=== PATIENT | male | born 1960 | race Caucasian/White ===

== ENCOUNTER 2017-09-14 00:42 | Outpatient (CLI) | payer OTHER, SELFPAY ==
[2017-09-14 09:04] LABS: HCT 43.5 % (40.0-50.0); HGB 15.1 g/dL (13.5-17.5); Mean Corp. HGB Concentration 34.7 g/dL (32.0-36.0); Mean Corpuscular Hemoglobin 29.3 pg (27.0-33.0); Mean Corpuscular Volume 84.5 fL (80-95); Platelet Count 210 x1000/uL (130-400); RBC 5.15 m/cumm (4.50-6.00); RBC Distribution Width 12.8 % (11.8-14.1); White Blood Cell Count 5.58 k/cumm (4.4-10.8)
[2017-09-14 09:58] LABS: ALT 37 U/L (12-78); AST 20 U/L (15-37); Albumin 4.1 g/dL (3.4-5.0); Alkaline Phosphatase 53 U/L (46-116); Anion Gap 6.4 mmol/L (3-11); BUN 15 mg/dL (7-18); Bilirubin, Total 1.2 mg/dL (0.2-1.0); CO2 27.6 mmol/L (21.0-32.0); CREATININE 1.06 mg/dL (0.70-1.30); Calcium 8.7 mg/dL (8.5-10.1); Chloride 105 mmol/L (98-107); Cholesterol 186 mg/dL (50-200); Glucose 99 mg/dL (70-100); HDL Cholesterol 50 mg/dL (40-60); LDL CHOLESTEROL 125 mg/dL (<100); Potassium 4.5 mmol/L (3.5-5.1); Sodium 139 mmol/L (136-145); Total Protein 6.9 g/dL (6.4-8.2); Triglyceride 69 mg/dL (30-150)
== END 2017-09-14 00:43 ==
PROVIDERS: PCP Family Medicine; Visit Provider Family Medicine
DX: R03.0 Elevated blood-pressure reading, without diagnosis of hypertension (principal); Z86.79 Personal history of other diseases of the circulatory system
CPT/HCPCS: 36415; 80053; 80061; 83721; 85027

== ENCOUNTER 2018-10-09 02:39 | Outpatient (CLI) | payer OTHER, SELFPAY ==
[2018-10-09 09:16] LABS: Glucose 104 mg/dL (70-100)
== END 2018-10-09 02:59 ==
PROVIDERS: PCP Family Medicine; Visit Provider Family Medicine
DX: Z00.00 Encounter for general adult medical examination without abnormal findings (principal); Z12.5 Encounter for screening for malignant neoplasm of prostate
CPT/HCPCS: 36415; 82947; 84153

== ENCOUNTER 2019-08-12 15:42 | Outpatient (REF) | payer OTHER, SELFPAY ==
--- NOTE | 2019-08-12 14:00 | SKI_PTH ---
PATIENT: Aden Rao LOC: [facility] U#:[id number] AGE/SX: 59/M ROOM: RE08/12/[address]: Judy Peterson MD : 1960 BED: DIS: 08/12/2019 SPEC #: [id number] RECD: 08/12/19 17:02 STATUS: ANANYA GALLAGHER #: [id number] DYLAN: 08/12/19 14:[address]: Judy Peterson DEPT: Surgical Specimen RECD BY: Saira Marcial ENTERED: 08/12/19 17:03 SP TYPE: DEWEY GARCIA DR: Myron Lam MD Tissues: 1 - SKIN BIOPSY(SHAVE/PUNCH) 2 - SKIN BIOPSY(SHAVE/PUNCH) Procedures: SKIN LEVEL 4 Comments: [id number]
== END 2019-08-12 16:02 ==
LOC: LBN 15:42
PROVIDERS: PCP Family Medicine; Visit Provider Surgery
DX: C44.519 Basal cell carcinoma of skin of other part of trunk (principal); L90.5 Scar conditions and fibrosis of skin; L85.8 Other specified epidermal thickening
CPT/HCPCS: 88305

== ENCOUNTER 2019-10-17 02:34 | Outpatient (CLI) | payer OTHER, SELFPAY ==
[2019-10-17 09:05] LABS: HCT 45.8 % (40.0-50.0); HGB 15.4 g/dL (13.5-17.5); MCH 29.2 pg (27.0-33.0); MCHC 33.6 % (32.0-36.0); MCV 86.7 fL (80-95); MPV 9.9 fL (8.0-11.0); Platelet Count 206 10^3/uL (130-400); RBC 5.28 10^6/uL (4.36-5.78); RDW 12.1 % (11.8-14.1); RDW-SD 38.4 fL; WBC 5.92 10^3/uL (4.4-10.8)
[2019-10-17 10:12] LABS: ALT 39 U/L (16-63); AST 17 U/L (15-37); Albumin 4.2 g/dL (3.4-5.0); Alkaline Phosphatase 52 U/L (46-116); Anion Gap 4.2 mmol/L (3-11); BUN 20 mg/dL (7-18); Bilirubin, Total 1.2 mg/dL (0.2-1.0); CO2 29.8 mmol/L (21.0-32.0); CREATININE 0.97 mg/dL (0.70-1.30); Calcium 8.8 mg/dL (8.5-10.1); Calculated LDL 142 mg/dL (<100); Chloride 105 mmol/L (98-107); Cholesterol 202 mg/dL (<200); Glucose 105 mg/dL (74-106); HDL Cholesterol 48 mg/dL (40-60); Potassium 4.5 mmol/L (3.5-5.1); Sodium 139 mmol/L (136-145); Triglyceride 60 mg/dL (<150)
== END 2019-10-17 02:54 ==
PROVIDERS: PCP Family Medicine; Visit Provider Family Medicine
DX: Z00.00 Encounter for general adult medical examination without abnormal findings (principal); R03.0 Elevated blood-pressure reading, without diagnosis of hypertension; Z13.220 Encounter for screening for lipoid disorders; Z13.29 Encounter for screening for other suspected endocrine disorder
CPT/HCPCS: 36415; 80053; 80061; 85027; 84443

== ENCOUNTER 2019-12-02 09:08 | Outpatient (CLI) | payer OTHER, SELFPAY ==
--- NOTE | 2019-12-02 08:15 | DI.RAD_ITS ---
EXAM: XR SHOULDER RT COMPLETE 2+V CLINICAL HISTORY: RIGHT SHOULDER PAIN. TECHNIQUE: 2D digital imaging was performed. COMPARISON: No exams were available for comparison FINDINGS: BONES: No acute fracture is present. No bony destructive lesion is seen. JOINTS: No dislocation present. Mild degenerative changes are seen at the AC joint and glenohumeral j oint.. SOFT TISSUE: Normal. IMPRESSION: Mild degenerative changes. DATA REPOSITORY: RADIATION DOSE DELIVERED:
== END 2019-12-02 09:28 ==
PROVIDERS: PCP Family Medicine; Referring Provider Family Medicine; Visit Provider Student in an Organized Health Care Education/Training Program
DX: M19.011 Primary osteoarthritis, right shoulder (principal); M25.511 Pain in right shoulder
CPT/HCPCS: 73030

== ENCOUNTER 2019-12-16 06:36 | Emergency (ER) | payer OTHER, SELFPAY ==
[2019-12-16 06:41] VITALS: BP 144/93; PULSE 61; RESP 20; TEMP 36.5; O2SAT 97
--- NOTE | 2019-12-16 06:45 | RT.EKG_ITS ---
APPROVED REPORT Exam: Resting ECG Patient Location: E HR:67 bpm ECG Measurements Heart Rate 67 AXIS VT 211 P 20 QRSd 96 QRS -15 QT 397 T 19 QTc 419 Conclusion Sinus rhythm...normal P axis, V-rate 60- 99 Prolonged VT interval...VT >210, V-rate 50- 90
--- NOTE | 2019-12-16 07:13 | ED.GENADUL_ITS ---
Discharge Plan Disposition Patient Disposition: HOME Condition: Good Discharge Details Clinical Impression: Kidney stone, Incidental lung nodule Primary Care Provider: Myron Lam ED Provider: Kingsley Garza Home Meds and New Rx's Prescriptions: New tamsulosin [Flomax] 0.4 mg capsule 0.4 mg PO DAILY Qty: 7 RF: 0 Continued valsartan 80 mg tablet 80 mg PO DAILY Qty: 90 RF: 3 Discharge Instructions Instructions: Kidney Stones (ED) Additional Instructions: Your CAT scan shows evidence of a kidney stone. Please take 1000mg of Tylenol and 800mg of Ibuprofen as needed for the pain. Please take the flomax to help expulse your stone. Please use the strainer to collect the stone, it can then be analyzed by your family doctor. If you notice any worsening of your symptoms, or any new symptoms such as vomiting, diarrhea, fever, chills, shortness of breath, chest pain, numbness, weakness, or fainting , please return immediately to the emergency department for reevaluation. Please follow up with your primary care provider as soon as possible for reassessment and reevaluation. Please get repeat blood work within the next week to reassess your kidney function. As always, it was a pleasure participating in your medical care today. Your CAT scan also does show some incidental pulmonary nodules. Although these are not of emergent concern patient do need to be followed and rechecked in the next 6 months. Please discuss this with your primary care provider for repeat imaging and continued monitoring. Referrals: Myron Lam [Primary Care Provider] - Medical Decision Making 59-year-old male with no significant past medical history except for hypertension, presents today for evaluation of right-sided abdominal pain. Patient states that 3 days ago he had notable right sided abdominal pain, with an associated episode of vomiting. It occurred after eating. Symptoms better with time, then yesterday when he ate lunch which was greasy shepherds pie it notably returned. Since then and currently the patient's pain has resolved and he is now pain-free. He denies any chest pain chest tightness or shortness of breath. He denies any history of cardiac disease. He denies any diarrhea. He denies any urinary complaints. No other complaints at this time. No other modifying factors. Currently he is pain-free. Physical exam is notably unremarkable, no right-sided tenderness, no pain or McBurney's point, negative Mahmood sign, no flank or CVA tenderness. Normal genital exam, no signs of testicular torsion. Signs and symptoms at this time are concerning for potential gallstone pathology, appendicitis notably less likely with the resolution of his symptoms. Kidney stone that is passed is also in the differential. Cardiac etiology unlikely but I do feel does warrant further investigation. Will evaluate for these acute pathologies, monitor closely and reassess 7:[address] scan results demonstrate evidence of a 5 mm distal right ureteral calculus, no evidence of infectious etiology in the urine, or blood work. Laboratory work-up is reassuring. Creatinine is slightly worse than normal at 1.6, with and shows no signs of renal failure. The stone being notably distal we will start him on Flomax. Will recommend close follow-up with PCP for lab recheck, and reassessment. With the patient's pain completely resolved, no evidence of ximena renal failure, infectious etiology or uncontrolled pain the patient will be discharged home. Discussed red flags for which to return. Additionally there was evidence of incidental pulmonary nodules noted on CT scan. Will recommend PCP follow-up and reimaging in the next 6 months. I have extensively reviewed the treatment plan and discharge instructions with the patient. I have addressed all patient concerns at this time. The patient was made aware of what symptoms to monitor for that would warrant a return to the emergency department. Discussed the plan with the patient, they demonstrate verbal understanding and agreement with our assessment and plan at this time. EKG 7: 00 Rate 67, NH 211, QTc 419, QRS 96, no significant ST elevations or depressions, no evidence of STEMI, FINDINGS: Lungs: There are multiple small noncalcified pulmonary nodules in the lung bases measuring up to 3 mm in diameter. Liver: Normal. No mass. Gallbladder and bile ducts: Normal. No calcified stones. No ductal dilation. Pancreas: Normal. No ductal dilation. Spleen: Normal. No splenomegaly. Adrenal glands: Normal. No mass. Kidneys and ureters: There is a 5 mm calculus in distal right ureter at the level of the mid sacrum. There is mild right hydronephrosis and hydroureter. No calcifications are seen within the kidneys. There is no hydronephrosis on the left side. Stomach and bowel: Scattered diverticuli present on the colon but there is no evidence of acute diverticulitis. Appendix: No evidence of appendicitis. Intraperitoneal space: Unremarkable. No free air. No significant fluid collection Vasculature: Unremarkable. No abdominal aortic aneurysm. Lymph nodes: Unremarkable. No enlarged lymph nodes. Urinary bladder: Unremarkable as visualized. Reproductive: Multiple calcifications are present in an enlarged prostate. There is mural thickening of the urinary bladder which could be due to partial filling but also possibly chronic outlet obstructed from prostatic hypertrophy. Bones/joints: DJD is present in the spine with sclerosis and osteophyte formation. Soft tissues: Unremarkable. Other findings: . IMPRESSION: 1. There is a 5 mm distal right ureteral calculus with mild right hydronephrosis. 2. Multiple small noncalcified pulmonary nodules in the lung bases measuring up to 3 mm. 3. For patients at low risk (minimal or absent history of smoking and of other known risk factors), no routine follow-up is indicated. For patients at high risk (history of smoking or of other known risk factors), consider optional CT Chest at 12 months. (Reference: Lenny) REFERENCES: Lenny Warner, et al. Guidelines for Management of Incidental Pulmonary Nodules Detected on CT Images: From the Fleischner Society 2017. Radiology. 2017;284(1):228-243. Thank you for allowing us to participate in the care of your patient. Dictated and Authenticated by: Saw Ochoa MD 12/16/2019 7:35 AM Eastern Time ([place] & [place]) HPI General Date/Time Provider Initiated Documentation: 12/16/19 06:54 . HPI Narrative: 59-year-old male with no significant past medical history except for hypertension, presents today for evaluation of right-sided abdominal pain. Patient states that 3 days ago he had notable right sided abdominal pain, with an associated episode of vomiting. It occurred after eating. Symptoms better with time, then yesterday when he ate lunch which was greasy shepherds pie it notably returned. Since then and currently the patient's pain has resolved and he is now pain-free. He denies any chest pain chest tightness or shortness of breath. He denies any history of cardiac disease. He denies any diarrhea. He denies any urinary complaints. No other complaints at this time. No other modifying factors. Currently he is pain-free. Related Data Home Medications Medication Instructions Recorded Confirmed valsartan 80 mg tablet 80 mg PO DAILY #90 tab 10/27/19 12/02/19 tamsulosin [Flomax] 0.4 mg PO DAILY #7 cap 12/16/19 Previous Rx's Medication Instructions Recorded valsartan 80 mg tablet 80 mg PO DAILY #90 tab 10/27/19 tamsulosin [Flomax] 0.4 mg PO DAILY #7 cap 12/16/19 Allergies Allergy/AdvReac Type Severity Reaction Status Date / Time oxycodone HCl [From Percocet] Allergy Unknown Verified 12/02/19 08:15 General Stated Complaint: Abd Prob ARVIN: 3 Review of Systems All systems reviewed & are unremarkable except as noted in HPI and below PFSH Medical History Anxiety (09/11/11) Dermatophytosis of nail (02/10/14) Elevated BP without diagnosis of hypertension (09/21/17) Malignant melanoma of torso excluding breast (08/10/16) back Partial tear of rotator cuff (09/21/11) Surgical History Excision, Lesion (08/09/16) back, melanoma LASIK Status post labral repair of shoulder x2 (both shoulders) Vasectomy Family History Mother , 82 Cancer of kidney Colon cancer Father , 87 Essential hypertension Stroke Bladder cancer Brother Brain cancer Brother No problems noted. Son No problems noted. Daughter No problems noted. Other Hyperlipidemia Social History Smoking/Tobacco Use Status: Never Smoking risk assessment performed?: Yes Alcohol Intake: current Alcohol Intake frequency: a few times a week Alcohol type: beer Drug use: Never Substance use type: former substance user and marijuana Caregiver/Support person: No Household members: spouse and children Housing: house Communication Needs: None Do you need help understanding health information?: Rarely Pets and animals: Yes Pets and animals: cat(s) and dog(s) Sexually active: Yes Do you think of yourself as: straight/heterosexual Current gender identity: male What is your relationship status?: How often do you talk on the phone with friends or family?: once per week How often do you get together with friends or relatives?: once per week How often do you attend judaism or sabianist services?: 4 or more times per year Do you belong to any clubs or organized social groups?: yes Panel score (0-1 are the most socially isolated patients): 3 What type of physical activity do you participate in: walking Duration: 15-30 minutes/day Frequency: 3-4 times per week Tanna/Synagogue: [employer] Special tanna needs: No Seatbelt use: always Helmet use: Yes Helmet use: always Drive intox or ride w/intox 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 3.ENT: Atraumatic external nose and ears. Moist MM. Neck: Symmetric, trachea midline, No thyromegaly. 4.CVS: +S1/S2, No murmurs or gallops. Peripheral pulses 2+ and equal in all ex tremities. Brisk capillary refill in all extremities. 5.RESP: Unlabored respiratory effort. Clear to auscultation bilaterally. No wheezes rales or rhonchi 6.GI: Soft, Nontender/Nondistended, No hepatosplenomegaly. No guarding or rebound. No pain or McBurney's point, negative Mahmood sign, genital exam demonstrates bilaterally descended testicles, normal cremasteric reflex, no testicular penile tenderness. 7.MSK: Normocephalic/Atraumatic, Extremities w/o deformity or ttp No cyanosis or clubbing, Normal movement of all extremities 8.Skin: Warm, Dry. No rashes or lesions. 9.Neuro: street photographer II-XII grossly intact. Sensation grossly intact, no focal neurologic deficits. 10.Psych: (AAO) x3. Appropriate mood and affect Course Vital Signs Vital signs: Vital Signs Temperature 36.5 C 12/16/19 06:41 Pulse 61 12/16/19 06:41 Respiratory Rate 20 12/16/19 06:41 Blood Pressure 144/93 H 12/16/19 06:41 Pulse Oximetry 97 12/16/19 06:41 Temperature 36.5 C 12/16/19 06:41 Temperature Source Tympanic 12/16/19 06:41 Pulse 92 H 12/16/19 07:11 Respiratory Rate 18 12/16/19 07:11 Respiratory Effort 12/16/19 06:48 Blood Pressure 149/97 H 12/16/19 07:11 Pulse Oximetry 94 12/16/19 07:11 Oxygen Delivery Method Room Air 12/16/19 07:11 Oxygen Flow Rate 0 12/16/19 07:11 Pain Level 0 12/16/19 07:11
[2019-12-16 07:15] LABS: Abs Immature Grans 0.04 10^3/uL (0.0-0.06); Absolute Basophil Count 0.07 10^3/uL (0.0-0.2); Absolute Lymphocyte Count 2.23 10^3/uL (1.2-3.4); Absolute Monocyte Count 1.18 10^3/uL (0.1-0.8); Basophils % 0.6; Eosinophils % 0.9; HCT 42.8 % (40.0-50.0); HGB 14.6 g/dL (13.5-17.5); Immature Grans % 0.3; Lymphocytes % 19.4; MCH 29.7 pg (27.0-33.0); MCHC 34.1 % (32.0-36.0); MCV 87.2 fL (80-95); MPV 9.8 fL (8.0-11.0); Monocytes % 10.3; Neutrophils % 68.5; Nucleated RBC 0 %; Platelet Count 203 10^3/uL (130-400); RBC 4.91 10^6/uL (4.36-5.78); RDW 12.4 % (11.8-14.1); RDW-SD 39.6 fL; WBC 11.47 10^3/uL (4.4-10.8)
[2019-12-16 07:16] LABS: Bilirubin Negative (Negative); Blood Moderate (Negative); Clarity Sl Cloudy (Clear); Glucose Negative (Negative); Ketones Negative (Negative); Leukocyte Esterase Negative (Negative); Nitrite Negative (Negative); pH 7.5 (5-8)
[2019-12-16 07:18] LABS: Absolute Neutrophil Count 7.86 10^3/uL (1.2-6.7)
--- NOTE | 2019-12-16 07:18 | DI.CT_ITS ---
EXAM: CT ABDOMEN PELVIS WO CLINICAL HISTORY: right sided abdominal pain. TECHNIQUE: Imaging Protocol: Axial computed tomography images with coronal and sagittal reformatted images were created and reviewed. COMPARISON: No exams were available for comparison FINDINGS: ABDOMEN: Lung Bases: There is a calcified granuloma in the left lingula. There is a 3 mm nodule associated wi th the lateral aspect of the right major fissure which may represent an intraparenchymal lymph node. There are a few tiny noncalcified pulmonary nodules in the lung bases. The largest measuring 0.3 cm . Liver: Diffuse fatty infiltration. No measurable mass. Gallbladder and biliary tract: No radiodense calculus or biliary ductal dilation. Pancreas: Normal density, no abnormal calcifications or inflammatory process. Spleen: Normal. Kidneys: Normal size, contour and axis.There is a 5 mm calculus in the distal right ureter at the lev el of the mid sacrum. There is mild right hydronephrosis. No left nephrolithiasis or hydronephrosis . No masses seen. Adrenal glands: No mass is seen. Lymph nodes: Within normal limits. Abdominal Aorta: Abdominal portion non-dilated. Atherosclerosis. PELVIS: Bladder:Incompletely distended. No gross abnormality. Bowel: No obstruction or bowel wall thickening. Appendix is unremarkable. Mild colonic diverticulosi s but no evidence of acute diverticulitis. Peritoneal cavity: No ascites, collection or mesenteric inflammatory response Reproductive organs: Enlarged prostate gland. Bones: Degenerative changes. Soft Tissues: Within normal limits. IMPRESSION: 1. 5 mm distal right ureteral calculus causing mild right hydronephrosis. 2. Several small noncalcified pulmonary nodules in the lung bases measuring up to 3 mm. For high ris k patient is (history of smoking or other known risk fractures), consider CT scan of the chest in 12 months. RADIATION DOSE DELIVERED: 1,178.5mGy.cm Total DLP DATA REPOSITORY: All CT scans at this facility are submitted to the National Radiology Data Registry (NRDR) Dose Index Registry (DIR) with the [employer] (ACR). RADIATION OPTIMIZATION: All CT scans at this facility use at least one of these dose optimization te chniques: automated exposure control; mA and/or kV adjustment per patient size (includes targeted exa ms where dose is matched to clinical indication); or iterative reconstruction.
[2019-12-16 07:19] VITALS: RESP 18
[2019-12-16 07:27] VITALS: BP 126/83; PULSE 60; RESP 18; O2SAT 97
[2019-12-16 07:27] LABS: Bacteria Rare HPF (Negative); Epithelial Cells Rare HPF (Negative); WBC 0-2 HPF (0-5)
[2019-12-16 07:28] LABS: C & S Indicated? No; Casts Negative LPF (Negative); Crystals Moderate Amorphous HPF (Negative); Mucus Trace (Negative)
--- NOTE | 2019-12-16 07:35 | DI.VRAD_ITS ---
PROCEDURE INFORMATION: Exam: CT Abdomen And Pelvis Without Contrast Exam date and time: 12/16/2019 7:14 AM Age: 59 years old Clinical indication: Localized; Patient HX: Right sided abdominal pain. TECHNIQUE: Imaging protocol: Computed tomography of the abdomen and pelvis without contrast. Radiation optimization: All CT scans at this facility use at least one of these dose optimization techniques: automated exposure control; mA and/or kV adjustment per patient size (includes targeted exams where dose is matched to clinical indication); or iterative reconstruction. COMPARISON: No relevant prior studies available. FINDINGS: Lungs: There are multiple small noncalcified pulmonary nodules in the lung bases measuring up to 3 mm in diameter. Liver: Normal. No mass. Gallbladder and bile ducts: Normal. No calcified stones. No ductal dilation. Pancreas: Normal. No ductal dilation. Spleen: Normal. No splenomegaly. Adrenal glands: Normal. No mass. Kidneys and ureters: There is a 5 mm calculus in distal right ureter at the level of the mid sacrum. There is mild right hydronephrosis and hydroureter. No calcifications are seen within the kidneys. There is no hydronephrosis on the left side. Stomach and bowel: Scattered diverticuli present on the colon but there is no evidence of acute diverticulitis. Appendix: No evidence of appendicitis. Intraperitoneal space: Unremarkable. No free air. No significant fluid collection. Vasculature: Unremarkable. No abdominal aortic aneurysm. Lymph nodes: Unremarkable. No enlarged lymph nodes. Urinary bladder: Unremarkable as visualized. Reproductive: Multiple calcifications are present in an enlarged prostate. There is mural thickening of the urinary bladder which could be due to partial filling but also possibly chronic outlet obstructed from prostatic hypertrophy. Bones/joints: DJD is present in the spine with sclerosis and osteophyte formation. Soft tissues: Unremarkable. Other findings: . IMPRESSION: 1. There is a 5 mm distal right ureteral calculus with mild right hydronephrosis. 2. Multiple small noncalcified pulmonary nodules in the lung bases measuring up to 3 mm. 3. For patients at low risk (minimal or absent history of smoking and of other known risk factors), no routine follow-up is indicated. For patients at high risk (history of smoking or of other known risk factors), consider optional CT Chest at 12 months. (Reference: Lenny) REFERENCES: Lenny Warner et al. Guidelines for Management of Incidental Pulmonary Nodules Detected on CT Images: From the Fleischner Society 2017. Radiology. 2017;284(1):228-243. Dictated and Authenticated by: Saw Ochoa MD. Ordering:WILBERTO Wynn MD
[2019-12-16 07:36] LABS: ALT 36 U/L (16-63); AST 22 U/L (15-37); Albumin 3.9 g/dL (3.4-5.0); Alkaline Phosphatase 56 U/L (46-116); Anion Gap 2.3 mmol/L (3-11); BUN 20 mg/dL (7-18); Bilirubin, Total 2.6 mg/dL (0.2-1.0); CO2 30.7 mmol/L (21.0-32.0); Calcium 9.1 mg/dL (8.5-10.1); Chloride 103 mmol/L (98-107); Estimated GFR 44.62 (mL/min/1.73m2); Glucose 108 mg/dL (74-106); Lipase 170 U/L (73-393); Potassium 4.2 mmol/L (3.5-5.1); Sodium 136 mmol/L (136-145); Total Protein 7.1 g/dL (6.4-8.2)
[2019-12-16 07:36] LABS: Troponin I < 0.05 ng/mL (<0.06)
[2019-12-16 07:51] VITALS: BP 138/84; PULSE 60; RESP 13; O2SAT 96
== END 2019-12-16 08:05 | disposition home or self-care (01) ==
PROVIDERS: Emergency Provider Student in an Organized Health Care Education/Training Program; PCP Family Medicine
DX: N13.2 Hydronephrosis with renal and ureteral calculous obstruction (principal); N13.4 Hydroureter; R91.1 Solitary pulmonary nodule; I10 Essential (primary) hypertension
CPT/HCPCS: 36415; 80053; 83690; 93005; 99284; 74176; 81003; 81015; 84484; 85025; 93010; 99285

== ENCOUNTER 2019-12-22 15:56 | Outpatient (REF) | payer OTHER, SELFPAY ==
[2019-12-22 21:00] LABS: ALT 43 U/L (16-63); Anion Gap 8.2 mmol/L (3-11); BUN 19 mg/dL (7-18); CO2 27.8 mmol/L (21.0-32.0); CREATININE 1.08 mg/dL (0.70-1.30); Calcium 9.2 mg/dL (8.5-10.1); Calculated LDL 102 mg/dL (<100); Chloride 103 mmol/L (98-107); Cholesterol 192 mg/dL (<200); Glucose 106 mg/dL (74-106); HDL Cholesterol 40 mg/dL (40-60); Potassium 4.1 mmol/L (3.5-5.1); Sodium 139 mmol/L (136-145); Triglyceride 253 mg/dL (<150)
== END 2019-12-22 16:16 ==
LOC: NCHCN 15:56
PROVIDERS: PCP Family Medicine; Visit Provider Family Medicine
DX: N28.9 Disorder of kidney and ureter, unspecified (principal); I10 Essential (primary) hypertension
CPT/HCPCS: 80048; 80061; 84460

== ENCOUNTER 2020-02-26 01:38 | Outpatient (CLI) | payer OTHER, SELFPAY ==
--- NOTE | 2020-02-26 06:30 | DI.US_ITS ---
EXAM: US RENAL CLINICAL HISTORY: kidney stone 0.5mm right ureter on CT, f/u,N20.0 TECHNIQUE: Ultrasound performed using standard protocol. COMPARISON: CT CT ABDOMEN PELVIS WO from 12/16/2019 FINDINGS: Renal ultrasound was performed according to the usual protocol. The kidneys are normal in size and s hape. No hydronephrosis on either side. No renal mass identified by ultrasound criteria. No intrar enal calculi seen. There are bilateral ureteral jets visualized. There is an apparent intra vesicle calculus measuring about 10 millimeters in diameter, this was not seen on CT and there is some question this could lie i n the bladder wall or prostate. Question of echogenic focus seen in region of the distal ureter, also indeterminate. IMPRESSION: No evidence of acute urinary tract obstruction. Possible bladder stone. DATA REPOSITORY:
== END 2020-02-26 01:58 ==
PROVIDERS: PCP Family Medicine; Visit Provider Family Medicine
DX: N20.0 Calculus of kidney (principal)
CPT/HCPCS: 76770

== ENCOUNTER 2020-05-05 04:13 | Outpatient (CLI) | payer OTHER, SELFPAY ==
[2020-05-05 08:20] LABS: Bilirubin Negative (Negative); Blood Negative (Negative); Clarity Clear (Clear); Glucose Negative (Negative); Ketones Negative (Negative); Leukocyte Esterase Negative (Negative); Nitrite Negative (Negative); Urobilinogen 0.2 EU/dL (Up TO 0.2)
== END 2020-05-05 04:14 | disposition home or self-care (01) ==
LOC: LBO 04:13
PROVIDERS: PCP Family Medicine; Visit Provider Family Medicine
DX: N20.0 Calculus of kidney (principal)
CPT/HCPCS: 81003

== ENCOUNTER 2020-07-07 02:32 | Outpatient (CLI) | payer OTHER, SELFPAY ==
--- NOTE | 2020-07-07 07:45 | DI.CT_ITS ---
Exam(s) CT CHEST W EXAM: CT CHEST W CLINICAL HISTORY: Lung nodule found on Abd CT,r91.1. TECHNIQUE: Multi planar reconstructions were performed. CONTRAST MATERIAL: Omnipaque 350; 75 cc COMPARISON: CT CT ABDOMEN PELVIS WO from 12/16/2019 FINDINGS: CHEST: LUNGS: In the right lung there is a 2-3 millimeter fissure related nodule in the anterior basal segme nt of the right lower lobe. This corresponds to what was seen on recent upper images of an abdominal CT scan. There is also a subpleural 3 millimeter ipsilateral nodule in the lateral basal segment of the right lower lobe, also unchanged. There is a tiny 2 millimeter noncalcified subpleural nodule i n the posterior basal segment of the right lower lobe. There is a 2-3 millimeter nodule in the right upper lobe. No pleural effusion. There is some mild atelectasis in the inferior lingular segment. There is 8th 2-3 millimeters subple ural nodule at the junction of the posterior and lateral basal segments as well as an additional brad lar size nodule adjacent to it, both unchanged from the prior study of December 2019. No pleural eff usion. There are no confluent infiltrates in either lung. No findings in trachea and mainstem bronc hi. No bronchiectasis. MEDIASTINUM: There is no hilar nor mediastinal adenopathy. Small nodule measuring 3 millimeters is in cidentally noted in the right thyroid lobe. The entire thyroid is not included in the field of view. CARDIAC: Heart size is normal. There is no pericardial effusion.Caliber of the thoracic aorta is wit hin normal limits. VISUALIZED UPPER ABDOMEN:There are no significant adrenal masses. OSSEOUS: No significant osseous lesions. IMPRESSION: 1. Bilateral small nodules in both lungs, all measuring at or less than 3 millimeters. Those include d in the field of view of the previous December 2019 abdominal scan upper images are unchanged. Ther e is no intrathoracic adenopathy and there are no pleural effusions. 2. Appropriate follow-up would be repeat CT scan in 6 months to ensure stability of these small nodul es.. This can be performed without IV contrast. RADIATION DOSE DELIVERED: 612.84mGy.cm Total DLP DATA REPOSITORY: All CT scans at this facility are submitted to the National Radiology Data Registry (NRDR) Dose Index Registry (DIR) with the [employer] (ACR). RADIATION OPTIMIZATION: All CT scans at this facility use at least one of these dose optimization te chniques: automated exposure control; mA and/or kV adjustment per patient size (includes targeted exa ms where dose is matched to clinical indication); or iterative reconstruction.
[2020-07-07 08:58] LABS: ALT 33 U/L (16-63); AST 17 U/L (15-37); Albumin 4.2 g/dL (3.4-5.0); Alkaline Phosphatase 53 U/L (46-116); Anion Gap 7.4 mmol/L (3-11); BUN 20 mg/dL (7-18); Bilirubin, Total 1.9 mg/dL (0.2-1.0); CO2 29.6 mmol/L (21.0-32.0); CREATININE 1.1 mg/dL (0.70-1.30); Chloride 106 mmol/L (98-107); Glucose 94 mg/dL (74-106); Potassium 4.5 mmol/L (3.5-5.1); Sodium 143 mmol/L (136-145); Total Protein 7.2 g/dL (6.4-8.2)
[2020-07-07] MEDS: Normal Saline - Diluent 50 ML VIAL IV (09:18)
== END 2020-07-07 02:52 ==
PROVIDERS: PCP Nurse Practitioner Family; Visit Provider Nurse Practitioner Family
DX: R91.1 Solitary pulmonary nodule (principal); R91.8 Other nonspecific abnormal finding of lung field; R94.4 Abnormal results of kidney function studies
CPT/HCPCS: 80053; 71260

== ENCOUNTER 2020-07-07 04:27 | Outpatient (CLI) | payer OTHER, SELFPAY ==
[2020-07-07 08:59] LABS: Hemoglobin A1C 5.2 % (<5.7)
[2020-07-07 09:13] LABS: Calculated LDL 116 mg/dL (<100); Cholesterol 182 mg/dL (<200); HDL Cholesterol 52 mg/dL (40-60); Triglyceride 70 mg/dL (<150)
[2020-07-07 17:07] LABS: PSA, Screening 1.6 ng/mL (0.0-3.5)
== END 2020-07-07 04:28 | disposition home or self-care (01) ==
LOC: LBO 04:27
PROVIDERS: PCP Nurse Practitioner Family; Visit Provider Nurse Practitioner Family
DX: Z13.1 Encounter for screening for diabetes mellitus (principal); Z13.220 Encounter for screening for lipoid disorders; Z12.5 Encounter for screening for malignant neoplasm of prostate
CPT/HCPCS: 36415; 80061; 84153; 83036

== ENCOUNTER 2021-05-11 02:54 | Outpatient (CLI) | payer OTHER, SELFPAY ==
[2021-05-11 10:10] LABS: Source Nasal/Nares
[2021-05-11 12:56] LABS: COVID-19 PCR Negative (Negative)
== END 2021-05-11 02:55 | disposition home or self-care (01) ==
LOC: LBO 02:54
PROVIDERS: PCP Nurse Practitioner Family; Visit Provider Surgery
DX: Z20.822 Contact with and (suspected) exposure to COVID-19 (principal)
CPT/HCPCS: 87635

== ENCOUNTER 2021-05-13 07:43 | Day surgery (SDC) | payer OTHER, SELFPAY ==
--- NOTE | 2021-05-12 14:47 | W.COLOREPORT ---
Colonoscopy Report Date of procedure: 05/13/21 Pre-op diagnosis general: +family hx CRC/hx of polyps Post-op diagnosis procedure note: other (diverticula ) Surgeon: Janett Greco Anesthesia Type: General:No Airway Estimated blood loss (mL): 0 Pathology: none sent Complications: None Disposition: same day Prep: Miralax/Dulcolax Retraction Time: 9 Procedure Description: After informed consent was obtained the patient was taken to the procedure room and placed in a left decubitous position. Monitors were applied and a time out was done. The patients name, date of , procedure, allergies to medications and metal in their body was reviewed. The patient was then sedated. Once sedated and comfortable a rectal exam was done. External exam was normal. Internal exam revealed a normal sphincter tone and no palpable masses. The prostate normal. The scope was then introduced and retrofelexed. No internal hemorrhoids were identified. The scope was then advanced to the cecum w/out difficulty. The TI and appendiceal orifice were identified. The prep was bps 3 in all quadrants for a total of 9.. The scope was then slowly retracted over 9 minutes back into the rectum. There are no polyps or AVMs visualized today. He has a few small scattered diverticula in the sigmoid colon. There is no signs of active bleeding or infection. Scope was removed and the patient was woken up and taken back to Same day surgery in stable condition. The patient tolerated the procedure well and there were no immediate complications. Follow up: The patient should follow up in 5 years unless they develop changes in bowel habits or other new gastrointestinal complaints.
--- NOTE | 2021-05-12 14:48 | PDOC.DSDIS_ITS ---
Discharge Plan Disposition Patient Disposition: HOME Condition: Good Discharge Details Reason For Visit: colon scope Attending Provider: Janett Greco Primary Care Provider: Dejan Traore Home Meds and New Rx's Prescriptions: Continued omega 6-msp-wvf-fish oil [Fish Oil] 60-90-500 mg capsule 1 cap PO DAILY 0RF glucosamine sulfate [Glucosamine] 500 mg tablet 500 mg PO DAILY 0RF Rx Instructions: administer with a meal valsartan 80 mg tablet 80 mg PO DAILY Qty: 90 3RF Discontinued bisacodyl [Dulcolax (bisacodyl)] 5 mg tablet,delayed release (DR/EC) 5 mg PO ONCE Qty: 4 0RF Rx Instructions: Take according to provider's instructions for colonoscopy prep. No Action polyethylene glycol 3350 17 gram/dose powder 17 g PO ONCE Qty: 238 0RF Rx Instructions: To be taken as directed by prescriber's office for colonoscopy prep. Discharge Instructions Additional Instructions: [facility] Colonoscopy Post- Op Instructions Instructions for Everyone who is given Anesthesia: For your safety, please do the following for the next twenty-four (24) hours: *Do Not operate a motor vehicle (car, truck, motorcycle, etc.) *Do Not drink alcoholic beverages or use any recreational drugs for the first 24 hours or while taking pain medications. The medications in your body may have a reaction that can be dangerous. *Do Not make any important decisions or sign any important papers. Findings: Minor diverticular disease. Make sure you are moving your bowels on a regular basis, and not straining to go to the back Follow up: Repeat in 5 years 1. No lifting over 20 pounds or strenuous activity for the first 24 hours after your procedure. After 24 hours there are no restrictions on your activity but you may feel fatigued for a few days. 2. After you arrive home you may have a light meal and return to your normal diet as you can tolerate it without feeling sick to your stomach. 3. You may have a bloated, gaseous feeling in your belly (abdomen) after a colonoscopy. Passing gas and belching will help. Walking or lying down on your left side with your knees flexed may relieve the discomfort. Call the office at [phone] (Office) or [phone] (Hospital) right away if you notice any of the following: a.Vomiting of blood or ?coffee ground stools?. b.Rectal bleeding 1Tbsp, blood clots or continuous bleeding. c.Severe belly (abdominal) pain. d.A hard distended belly (abdomen) and an inability to pass gas. 4. Please don?t expect to have a normal BM (bowel movement) for 2-3 days after your procedure. 5. If there are questions regarding the findings of your procedure, please contact your doctor 6. If you are unable to contact your doctor with a problem, contact the hospital at [phone]. 7. Continue all your regular medications unless directed otherwise. I understand the above instructions and have no questions. Signature of Patient or Adult Escort Name of Responsible Adult Escort Signature of Nurse Date/Time Activity:: see above Diet:: see above Discharge Orders Discharge Orders: Discharge Order (Routine); Ordered 05/12/21 Ordered By: Janett Greco
[2021-05-13 08:11] VITALS: BP 137/90; PULSE 62; RESP 18; TEMP 36.4; O2SAT 98
--- NOTE | 2021-05-13 08:26 | W.ANESPRE ---
General Info Date of Service Date Performed: 05/13/21 Height: 6 ft 1 in Weight: 117.4 kg Body Mass Index (BMI): 34.1 Surgical Procedure: Operation Date: 05/13/21 09:05 Proposed Procedure Side Surgeon yvette Greco, Meds Allergies and Home Medications Allergies Allergy/AdvReac Type Severity Reaction Status Date / Time oxycodone HCl [From Percocet] AdvReac Unknown Nausea Verified 05/13/21 08:19 Home Medication Medication Instructions Recorded valsartan 80 mg tablet 80 mg PO DAILY #90 tab 01/31/21 glucosamine sulfate 500 mg tablet 500 mg PO DAILY 04/29/21 (Glucosamine) omega 3-ikt-fin-fish oil 60 mg-90 1 cap PO DAILY 04/29/21 mg-500 mg capsule (Fish Oil) polyethylene glycol 3350 17 17 g PO ONCE #238 g 04/29/21 gram/dose oral powder Current Visit Medications: Current Medications Generic Name Dose Route Start Last Admin Trade Name Freq PRN Reason Stop Dose Admin Hyoscyamine Sulfate 0.125 mg 05/12/21 14:52 Hyoscyamine 0.125 Mg Sl/Oral/Chew SL 05/13/21 16:00 DIRECTED PRN Ringer's Solution 1,000 mls @ 80 mls/hr 05/13/21 06:00 IV 06/11/21 23:59 [facility] IV Miscellaneous Supplies 1 each 05/13/21 06:00 Iv Access IV 06/11/21 23:59 DIRECTED LUIS Ondansetron HCl 4 mg 05/12/21 14:52 Ondansetron 4 Mg/2 Ml Vial IVP 05/13/21 16:00 Q4H PRN PRN Nausea / Vomiting Sodium Chloride 0 ml 05/13/21 06:00 Normal Saline Flush 10 Ml Syr IV 06/11/21 23:59 PRN PRN Sodium Chloride 0 ml 05/13/21 06:00 Normal Saline 10 Ml Vial IJ 06/11/21 23:59 DIRECTED PRN Sterile Water 0 ml 05/13/21 06:00 Water,Injection,Sterile 10 Ml Vial IJ 06/11/21 23:59 DIRECTED PRN PFSH Active Problems Active Problems: Problem Status Onset Code Screening for colon cancer Z12.11 Medical History Medical History Anxiety (09/11/11) Chronic right shoulder pain Dermatophytosis of nail (02/10/14) Elevated BP without diagnosis of hypertension (09/21/17) HTN (hypertension) Hyperlipidemia Kidney stone Malignant melanoma of torso excluding breast (08/10/16) back Partial tear of rotator cuff (09/21/11) Skin lesion (~07/2019) Skin lesions on left anterior shoulder, and lower middle back SLAP lesion of right shoulder Tendinitis of long head of biceps brachii of right shoulder Surgical History Surgical History Excision, Lesion (08/09/16) back, melanoma LASIK Status post labral repair of shoulder x2 (both shoulders) Vasectomy Tobacco Smoking/Tobacco Use Status: Never Passive smoking exposure: Yes Second hand exposure: Yes Alcohol Alcohol Intake: current Alcohol intake frequency: a few times a week Alcohol type: beer, wine and hard liquor Substance Use Substance use: Never Substance use type: former substance user and marijuana Vital Signs and Lab Results Vital Signs Most Recent Vital Signs in EMR: Most Recent Vital Signs Temp Pulse Resp BP Pulse Ox 36.4 C L 62 18 137/90 98 05/13/21 08:11 05/13/21 08:11 05/13/21 08:11 05/13/21 08:11 05/13/21 08:11 Lab Results Blood Type / Crossmatch: No Data to Display Complete Blood Count: No Data to Display Complete Metabolic Panel: No Data to Display Liver Function Panel: No Data to Display Coagulation Panel: No Data to Display Cardiac Panel: No Data to Display Arterial Blood Gas: No Data to Display Venous Blood Gas: No Data to Display Pancreas Panel: No Data to Display Thyroid Panel: No Data to Display Infectious Disease: Coronavirus (COVID-19)(PCR) Negative (Negative) 05/11/21 08:59 05/11/21 Coronavirus 2019 Source Nasal/Nares 05/11/21 08:59 05/11/21 Blood Cultures: No Data to Display Toxicology Panel: No Data to Display Imaging and Studies Imaging and Studies Study information below may be from another EMR and interpreted by another provider. Please see original notes in EMR for more complete details. EKG Summary: Conclusion Sinus rhythm...normal P axis, V-rate 60- 99 Prolonged SC interval...SC >210, V-rate 50- 90 12/16/19 Anesthesia Assessment and Plan Anesthesia History Personal History: No History of Anesthesia Complications Family History: No Family History of Anesthesia Complications Exercise Tolerance Exercise Tolerance: Metabolic Equivalents>4 Pertinent Negatives Pertinent Negatives: No Symptoms of GERD, No Major Cardiovascular Symptoms or Complaints, No Major Pulmonary Symptoms or Complaints and No History of CVA/TIA Cardiac & Pulmonary Exam Cardiac Exam: Normal S1/S2 Heart Sounds Pulmonary Exam: Clear Bilateral Breath Sounds Implantable Cardiac Device Does patient have a Pacemaker or an ICD?: No Airway Exam Known Difficult Airway: No Mallampati Class: 2 Mouth Opening: Normal (> 3cm) Thyromental Distance: Greater than 3 cm Facial Hair: Full [place] Neck Range of Motion: Full ROM Neck Circumference: Thick Teeth Condition: Normal Dentition ASA Classification ASA Score: ASA 2 Emergency Case?: No NPO Status NPO Status: NPO Clears >2 hours, Solids >8 hours Anesthesia Plan Resuscitation Status: Full Code Anesthesia Technique: General Anesthesia Airway Planned: Natural Airway Monitors Used: Standard Monitors
[2021-05-13 08:28] VITALS: BMI 34.1
[2021-05-13] MEDS: Lactated Ringers 1,000 ML 80 ML IV (08:28)
[2021-05-13 09:25] VITALS: BP 129/89; PULSE 75; RESP 16; TEMP 36.4; O2SAT 96
--- NOTE | 2021-05-13 09:27 | W.ANESPOSTOP ---
Postoperative Evaluation Date, Time and Location Date Performed: 05/13/21 Time Performed: 09:27 Patient Location: Day Surgery Unit Vital Signs Most Recent Imported Vital Signs: Most Recent Vital Signs Temp Pulse Resp BP Pulse Ox 36.4 C L 62 18 137/90 98 05/13/21 08:11 05/13/21 08:11 05/13/21 08:11 05/13/21 08:11 05/13/21 08:11 Most Recent Manually Entered Vital Signs: Adult Blood Pressure: 129/89 Heart Rate: 71 Respirations: 12 Oxygen Saturation (%): 96 Temperature (C): 36.4 C Pain Score (0-10 Scale): 0 Pain Score Most Recent Pain Score: Most Recent Pain Score Pain Level 0 05/13/21 08:11 Assessment Mental Status: Awake (Alert & Oriented to Patient Baseline) Airway and Respiratory Function: Patent airway with normal (patient baseline) respiratory exam Cardiovascular Function: Hemodynamically Stable Hydration Status: Adequately Hydrated Nausea & Vomiting: No Nausea or Vomiting Pain: Pt. Denies Any Pain Peripheral Nerve Block: Patient did not receive a nerve block
[2021-05-13 09:28] VITALS: BP 129/89; PULSE 71; RESP 12; TEMPC 36.4; O2SAT 96
[2021-05-13 09:54] VITALS: BP 121/83; PULSE 60; RESP 16; TEMP 36.5; O2SAT 97
== END 2021-05-13 10:42 | disposition home or self-care (01) ==
PROVIDERS: PCP Nurse Practitioner Family; Visit Provider Surgery
PROC: 0DJD8ZZ Inspection of Lower Intestinal Tract, Via Natural or Artificial Opening Endoscopic (ICD-10-PCS; CPT 45378; principal; 2021-05-13 09:00)
DX: Z12.11 Encounter for screening for malignant neoplasm of colon (principal); Z80.0 Family history of malignant neoplasm of digestive organs; Z86.010 Personal history of colon polyps; K57.30 Diverticulosis of large intestine without perforation or abscess without bleeding
CPT/HCPCS: 45378

== ENCOUNTER 2021-10-07 01:04 | Outpatient (CLI) | payer OTHER, SELFPAY ==
[2021-10-07 13:21] LABS: CREATININE 1.1 mg/dL (0.70-1.30); Potassium 4.3 mmol/L (3.5-5.1)
== END 2021-10-07 01:05 | disposition home or self-care (01) ==
LOC: LOS 01:04
PROVIDERS: PCP Nurse Practitioner Family; Visit Provider Nurse Practitioner Family
DX: I10 Essential (primary) hypertension (principal)
CPT/HCPCS: 36415; 82565; 84132

== ENCOUNTER 2022-08-29 02:40 | Outpatient (CLI) | payer OTHER, SELFPAY ==
[2022-08-29 15:45] LABS: CREATININE 1.1 mg/dL (0.70-1.30); Estimated GFR 76.37 (mL/min/1.73m2); Potassium 3.7 mmol/L (3.5-5.1)
== END 2022-08-29 02:41 | disposition home or self-care (01) ==
LOC: LBO 02:41
PROVIDERS: PCP Nurse Practitioner Family; Visit Provider Nurse Practitioner Family
DX: I10 Essential (primary) hypertension (principal)
CPT/HCPCS: 36415; 82565; 84132

== ENCOUNTER 2023-10-29 04:24 | Outpatient (CLI) | payer OTHER, SELFPAY ==
[2023-10-29 09:37] LABS: Hemoglobin A1C 5.8 % (<5.7)
[2023-10-29 09:39] LABS: CREATININE 1.2 mg/dL (0.70-1.30); Calculated LDL 71 mg/dL (<100); Cholesterol 145 mg/dL (<200); Estimated GFR 68.38 (mL/min/1.73m2); HDL Cholesterol 36 mg/dL (40-60); Potassium 4.3 mmol/L (3.5-5.1); Triglyceride 192 mg/dL (<150)
== END 2023-10-29 04:25 | disposition home or self-care (01) ==
LOC: LBO 04:24
PROVIDERS: PCP Nurse Practitioner Family; Visit Provider Nurse Practitioner Family
DX: Z13.220 Encounter for screening for lipoid disorders (principal); I10 Essential (primary) hypertension; Z13.1 Encounter for screening for diabetes mellitus
CPT/HCPCS: 36415; 80061; 82565; 83036; 84132

== ENCOUNTER 2023-11-08 02:58 | Outpatient (CLI) | payer OTHER, SELFPAY ==
[2023-11-08 21:32] LABS: PSA, Screening 1.7 ng/mL (<=4.5)
== END 2023-11-08 02:59 | disposition home or self-care (01) ==
PROVIDERS: PCP Nurse Practitioner Family; Visit Provider Nurse Practitioner Family
DX: Z12.5 Encounter for screening for malignant neoplasm of prostate (principal)
CPT/HCPCS: 36415; 84153

== ENCOUNTER 2024-12-02 00:08 | Outpatient (CLI) | payer OTHER, SELFPAY ==
[2024-12-02 08:02] LABS: Hemoglobin A1C 5.6 % (<5.7)
[2024-12-02 12:31] LABS: ALT 35 U/L (16-63); AST 25 U/L (15-37); Albumin 4.0 g/dL (3.4-5.0); Alkaline Phosphatase 60 U/L (46-116); Anion Gap 7.8 mmol/L (3-11); BUN 19 mg/dL (7-18); Bilirubin, Total 1.8 mg/dL (0.2-1.0); CO2 30.2 mmol/L (21.0-32.0); Calcium 9.5 mg/dL (8.5-10.1); Calculated LDL 131 mg/dL (<100); Chloride 101 mmol/L (98-107); Cholesterol 210 mg/dL (<200); Estimated GFR 75.43 (mL/min/1.73m2); Glucose 114 mg/dL (74-106); HDL Cholesterol 40 mg/dL (>or=40); Potassium 4.1 mmol/L (3.5-5.1); Sodium 139 mmol/L (136-145); Total Protein 7.2 g/dL (6.4-8.2); Triglyceride 199 mg/dL (<150)
[2024-12-03 14:54] LABS: PSA, Screening 1.5 ng/mL (<=4.5)
== END 2024-12-02 00:09 | disposition home or self-care (01) ==
LOC: LBO 00:08
PROVIDERS: PCP Nurse Practitioner Family; Visit Provider Nurse Practitioner Family
DX: Z13.220 Encounter for screening for lipoid disorders (principal); Z13.1 Encounter for screening for diabetes mellitus; Z12.5 Encounter for screening for malignant neoplasm of prostate; I10 Essential (primary) hypertension
CPT/HCPCS: 36415; 80053; 80061; 84153; 83036

== ENCOUNTER 2024-12-02 00:17 | Outpatient (CLI) | payer OTHER, SELFPAY ==
--- NOTE | 2024-12-02 06:45 | DI.RAD_ITS ---
Exam(s) XR FINGER LT MIDDLE EXAM: XR FINGER LT MIDDLE EXAM DATE/TIME: CLINICAL HISTORY: bony abnormality most proximal end on anterior side,Q79.9. TECHNIQUE: 2D digital imaging was performed of the left finger. Three views were obtained. PA/AP, oblique, and lateral views were obtained. COMPARISON: None. FINDINGS: BONES: No acute fracture is present. No bony destructive lesion is seen. JOINTS: No dislocation is present. At the DIP joint there is joint space narrowing present. There also osteophytes seen anteriorly and posteriorly. The PIP joint is well maintained as is the metacarpophalangeal joint. SOFT TISSUE: There are no soft tissue calcifications. 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 DATA REPOSITORY: RADIATION DOSE DELIVERED:
== END 2024-12-02 00:37 ==
LOC: DI 00:17
PROVIDERS: PCP Nurse Practitioner Family; Visit Provider Nurse Practitioner Family
DX: Q79.9 Congenital malformation of musculoskeletal system, unspecified (principal)
CPT/HCPCS: 73140